=== PATIENT | male | born 1955 | race Caucasian/White ===

== ENCOUNTER 2017-09-02 13:58 | Emergency (ER) | payer MEDICARE, OTHER ==
[~2017-09-02] VITALS: Ht 180.3 cm; Wt 113.5 kg
[~2017-09-02 13:58] MED LIST: ASPI-10 PO; CARV3.12 PO; GABA600T2 PO; GLYB5TAB7 PO; INSU100V11 SQ; INSU200I4 SQ; LAMO200T2 PO; LORA1TAB PO; SERT100T PO; SIMV40TA4 PO; TRAZ150T78 PO
[2017-09-02 13:59] VITALS: BP 143/93
[2017-09-02] MEDS ORDERED: HYDR28CR14 TOP (14:17)
== END 2017-09-02 14:28 | disposition home or self-care (01) ==
LOC: ER 13:59
DX: L23.7 Allergic contact dermatitis due to plants, except food (principal); I10 Essential (primary) hypertension; E11.42 Type 2 diabetes mellitus with diabetic polyneuropathy; Z86.73 Personal history of transient ischemic attack (TIA), and cerebral infarction without residual deficits; Z79.82 Long term (current) use of aspirin; Z79.4 Long term (current) use of insulin; Z88.1 Allergy status to other antibiotic agents; Z91.018 Allergy to other foods
CPT/HCPCS: 99282

== ENCOUNTER 2017-11-10 10:07 | Day surgery (SDC) | payer MEDICARE ==
[~2017-11-10 10:07] MED LIST changes: +HYDR28CR14 TOP
[2017-11-10] MEDS ORDERED: LIDOcaine 2% 5ml jelly ONE (10:52)
[2017-11-10] MEDS ORDERED: ATOR80TA PO (11:28)
[2017-11-10] MEDS ORDERED: CLON-528 PO (11:29)
[2017-11-10] MEDS ORDERED: NPH,100V2 SQ (11:30)
[2017-11-10] MEDS ORDERED: BACL20TA PO (11:30)
[2017-11-10] MEDS ORDERED: NOVRI SQ (11:31)
[2017-11-10] MEDS ORDERED: FLUO40CA10 PO (11:33)
== END 2017-11-10 11:48 | disposition home or self-care (01) ==
LOC: WOUND CARE 10:07
PROVIDERS: ATTEND Surgery
DX: E11.621 Type 2 diabetes mellitus with foot ulcer (principal); L97.511 Non-pressure chronic ulcer of other part of right foot limited to breakdown of skin; L97.521 Non-pressure chronic ulcer of other part of left foot limited to breakdown of skin; L89.892 Pressure ulcer of other site, stage 2; L89.891 Pressure ulcer of other site, stage 1; E11.42 Type 2 diabetes mellitus with diabetic polyneuropathy; E11.65 Type 2 diabetes mellitus with hyperglycemia; I10 Essential (primary) hypertension; F31.9 Bipolar disorder, unspecified; Z89.421 Acquired absence of other right toe(s); Z86.14 Personal history of Methicillin resistant Staphylococcus aureus infection; Z86.73 Personal history of transient ischemic attack (TIA), and cerebral infarction without residual deficits
CPT/HCPCS: 36416; 82948; 97597; A6021; A6206

== ENCOUNTER 2017-11-17 10:20 | Outpatient (CLI) | payer MEDICARE ==
[~2017-11-17 10:20] MED LIST changes: +ATOR80TA PO; +BACL20TA PO; +CLON-528 PO; +FLUO40CA10 PO; -LAMO200T2 PO; -LORA1TAB PO; +NOVRI SQ; +NPH,100V2 SQ; -SERT100T PO; -SIMV40TA4 PO
[2017-11-17] MEDS ORDERED: CLON0.5T23 PO (15:44)
[2017-11-17] MEDS ORDERED: LISI1TAB9 PO (15:44)
[2017-11-17] MEDS ORDERED: ROPI1TAB2 PO (15:44)
[2017-11-17] MEDS ORDERED: NPH,100V2 SQ (15:44)
[2017-11-17] MEDS ORDERED: METF-436 PO (15:44)
[2017-11-17] MEDS ORDERED: MULT-1180 PO (15:44)
[2017-11-17] MEDS ORDERED: MECL-127 PO (15:44)
[2017-11-17] MEDS ORDERED: ATOR80TA PO (15:44)
[2017-11-17] MEDS ORDERED: BACL20TA PO (15:44)
[2017-11-17] MEDS ORDERED: NOVRI SQ (15:44)
[2017-11-17] MEDS ORDERED: TIZA4CAP6 PO (15:44)
== END 2017-11-17 11:04 | disposition home or self-care (01) ==
LOC: WOUND CARE 10:20 → EDSTATUS 10:30 → WOUND CARE 11:04
PROVIDERS: ATTEND Surgery
DX: E11.621 Type 2 diabetes mellitus with foot ulcer (principal); L97.511 Non-pressure chronic ulcer of other part of right foot limited to breakdown of skin; L97.521 Non-pressure chronic ulcer of other part of left foot limited to breakdown of skin; L89.892 Pressure ulcer of other site, stage 2; L89.891 Pressure ulcer of other site, stage 1; E11.42 Type 2 diabetes mellitus with diabetic polyneuropathy; E11.65 Type 2 diabetes mellitus with hyperglycemia; I10 Essential (primary) hypertension; F31.9 Bipolar disorder, unspecified; Z89.421 Acquired absence of other right toe(s); Z86.14 Personal history of Methicillin resistant Staphylococcus aureus infection; Z86.73 Personal history of transient ischemic attack (TIA), and cerebral infarction without residual deficits
CPT/HCPCS: 36416; 82948; 99211

== ENCOUNTER 2017-11-17 11:03 | Inpatient (IN) | payer MEDICARE, OTHER ==
[~2017-11-17] VITALS: Ht 610.5 cm; Wt 109.0 kg
[2017-11-17] MEDS ORDERED: normal saline 1000ML IV soln IVB ONE (12:55)
[2017-11-17 13:11] LABS: BASOPHILS # (AUTO) 0.1 X10'3 (0-0.2); BASOPHILS % (AUTO) 0.4 % (0-1); EOSINOPHILS # (AUTO) 0.3 X10'3 (0-0.9); EOSINOPHILS % (AUTO) 2.3 % (0-6); HEMATOCRIT 41.8 % (42.0-52.0); HEMOGLOBIN 14.1 g/dl (14.0-17.9); LYMPHOCYTES % (AUTO) 17.2 % (21-51); MEAN CORPUSCULAR HEMOGLOBIN 30.1 PG (27.0-31.0); MEAN CORPUSCULAR HGB CONC 33.8 % (33.0-36.5); MEAN CORPUSCULAR VOLUME 88.9 FL (78-98); MEAN PLATELET VOLUME 8.1 FL (7.4-10.4); MONOCYTES # (AUTO) 0.9 X10'3 (0-0.9); MONOCYTES % (AUTO) 7.7 % (2-12); NEUTROPHILS # (AUTO) 8.4 X10'3 (1.8-7.7); NEUTROPHILS % (AUTO) 72.4 % (42-75); PLATELET COUNT 277 X10'3 (140-440); RED CELL DISTRIBUTION WIDTH 13.8 % (11.5-14.5); WHITE BLOOD COUNT 11.6 X10'3 (4.5-11.0)
[2017-11-17 13:27] LABS: ALANINE AMINOTRANSFERASE 31 U/L (12-78); ALBUMIN 4.3 G/DL (3.4-5.0); ALBUMIN/GLOBULIN RATIO 1.1 (1.1-1.5); ALKALINE PHOSPHATASE 111 IU/L (46-116); ANION GAP 12 (8-16); ASPARTATE AMINO TRANSFERASE 18 U/L (10-37); BILIRUBIN,TOTAL 0.5 MG/DL (0.1-1.0); BLOOD UREA NITROGEN 59 MG/DL (7-18); BUN/CREATININE RATIO 12.4 (5.4-32.0); CALCIUM 9.4 MG/DL (8.5-10.1); CHLORIDE 95 MMOL/L (99-107); CREATININE 4.75 MG/DL (0.60-1.10); GLUCOSE 296 MG/DL (70-104); POTASSIUM 5.3 MMOL/L (3.5-5.1); SODIUM 131 MMOL/L (135-145); TOTAL CARBON DIOXIDE 23.8 MMOL/L (24-32); TOTAL PROTEIN 8.2 G/DL (6.4-8.2); eGFR 13 ML/MIN
[2017-11-17 14:10] LABS: PROTHROMBIN TIME 10.4 SECONDS (9.0-12.0)
[2017-11-17] MEDS ORDERED: magnesium Cl slow-release 64mg tablet PO PRN (14:30)
[2017-11-17] MEDS ORDERED: potassium Cl 40MEQ/NS 500ml 500 ML IV PRN ×2 (14:30)
[2017-11-17] MEDS ORDERED: magnesium 4gm in 100ml NS 100 ML IV PRN (14:30)
[2017-11-17] MEDS ORDERED: magnesium hydroxide 30ml (MOM) UD suspension PO PRN (14:30)
[2017-11-17] MEDS ORDERED: potassium Cl 20 mEq SR tablet PO PRN ×2 (14:30)
[2017-11-17] MEDS ORDERED: ondansetron/PF 4mg/2ml inj IV PRN (14:30)
[2017-11-17] MEDS ORDERED: magnesium 1gm/100ml D5W IVPB 100 ML IV PRN (14:30)
[2017-11-17] MEDS ORDERED: acetaminophen 325mg tablet PO PRN ×2 (14:30)
[2017-11-17] MEDS ORDERED: mag hydrox/Alum hydrox/simeth 30ml oral suspension PO PRN (14:30)
[2017-11-17] MEDS: normal saline 1000ml 1,000 ML IV SCH ×2 (14:49→23:09)
[2017-11-17] MEDS ORDERED: MECL-127 PO (15:44)
[2017-11-17] MEDS ORDERED: BACL20TA PO (15:44)
[2017-11-17] MEDS ORDERED: ATOR80TA PO (15:44)
[2017-11-17] MEDS ORDERED: NOVRI SQ (15:44)
[2017-11-17] MEDS ORDERED: METF-436 PO (15:44)
[2017-11-17] MEDS ORDERED: CLON0.5T23 PO (15:44)
[2017-11-17] MEDS ORDERED: LISI1TAB9 PO (15:44)
[2017-11-17] MEDS ORDERED: ROPI1TAB2 PO (15:44)
[2017-11-17] MEDS ORDERED: MULT-1180 PO (15:44)
[2017-11-17] MEDS ORDERED: TIZA4CAP6 PO (15:44)
[2017-11-17] MEDS ORDERED: NPH,100V2 SQ (15:44)
[2017-11-17] MEDS ORDERED: HYDROcodone/acetaminophen 10/325mg tab PO PRN ×3 (16:45→16:50)
[2017-11-17] MEDS: HYDROcodone/acetaminophen 10/325mg tab PO PRN (17:12)
[2017-11-17 17:15] VITALS: BP 115/62
[2017-11-17] MEDS ORDERED: glucagon, human recombinant 1mg kit SUBCUT PRN (17:45)
[2017-11-17] MEDS ORDERED: MESSAGE TO PHARMACY PO ONE (17:45)
[2017-11-17] MEDS ORDERED: TIZANIDINE HCL PO PRN (17:45)
[2017-11-17] MEDS ORDERED: BACLOFEN PO PRN (17:45)
[2017-11-17] MEDS ORDERED: dextrose ORAL solution 15 GM/59 ML bottle PO PRN ×2 (17:45)
[2017-11-17] MEDS ORDERED: non-formulary drug (Clonazepam 1 TAB) PO PRN (17:45)
[2017-11-17] MEDS ORDERED: dextrose 50%-water 50ml dispensing syringe IV PRN ×2 (17:45)
[2017-11-17] MEDS ORDERED: MECLIZINE HCL 25 MG PO PRN (17:45)
[2017-11-17] MEDS ORDERED: insulin Lispro (HumaLOG) vial - multi-dose SQ SCH (17:45)
[2017-11-17] MEDS ORDERED: clonazePAM 0.5mg tablet PO PRN (17:50)
[2017-11-17] MEDS ORDERED: baclofen 10mg tablet PO PRN (17:50)
[2017-11-17] MEDS ORDERED: meclizine 12.5mg tablet PO PRN (17:55)
[2017-11-17] MEDS ORDERED: tizanidine 4mg tablet PO PRN (17:55)
[2017-11-17 18:00] VITALS: BP 115/62
[2017-11-17 18:18] LABS: HEMOGLOBIN A1C 9.5 % (4.5-6.2)
[2017-11-17] MEDS: diphenhydrAMINE 25mg capsule PO PRN (19:57)
[2017-11-17] MEDS: carVEDilol 3.125mg tablet PO SCH (19:57)
[2017-11-17] MEDS: heparin, porcine 5000 units/ml vial SQ SCH (19:58)
[2017-11-17 20:00] VITALS: BP_SYST 103; BP_SYST 107; BP_SYST 110; BP_DIAS 48; BP_DIAS 62; BP_DIAS 63
[2017-11-17] MEDS ORDERED: NPH, human insulin isophane inj. SQ SCH (20:00)
[2017-11-17] MEDS ORDERED: non-formulary drug (Atorvastatin Calcium* (Lipitor*) 1 TABLET) PO SCH (21:00)
[2017-11-17] MEDS ORDERED: temazepam 15mg capsule PO PRN (21:00)
[2017-11-17] MEDS: traZODone 150mg tablet PO PRN (21:09)
[2017-11-17] MEDS: atorvastatin 20mg tablet PO SCH (21:10)
[2017-11-17] MEDS: ROPINIRole 1mg tablet PO SCH (21:10)
[2017-11-17] MEDS: insulin Lispro (HumaLOG) vial - multi-dose SQ SCH (21:22)
[2017-11-17] MEDS: insulin glargine (Lantus) pen - multi-dose SQ SCH (21:24)
[2017-11-17 22:00] VITALS: BP 107/63
[2017-11-17 23:53] LABS: TOTAL PROTEIN,URINE RANDOM 37.8 MG/DL
[2017-11-18 00:32] LABS: UA EOSINOPHILS NO EOS /HPF
[2017-11-18 01:22] LABS: HEMATOCRIT 37.1 % (42.0-52.0); HEMOGLOBIN 12.3 g/dl (14.0-17.9); MEAN CORPUSCULAR HEMOGLOBIN 29.7 PG (27.0-31.0); MEAN CORPUSCULAR HGB CONC 33.2 % (33.0-36.5); MEAN CORPUSCULAR VOLUME 89.5 FL (78-98); MEAN PLATELET VOLUME 8.3 FL (7.4-10.4); PLATELET COUNT 231 X10'3 (140-440); RED BLOOD COUNT 4.15 X10'6 (4.70-6.10); RED CELL DISTRIBUTION WIDTH 13.2 % (11.5-14.5); WHITE BLOOD COUNT 10.4 X10'3 (4.5-11.0)
[2017-11-18 01:33] LABS: ALBUMIN 3.5 G/DL (3.4-5.0); ANION GAP 12 (8-16); BLOOD UREA NITROGEN 58 MG/DL (7-18); BUN/CREATININE RATIO 17.5 (5.4-32.0); CALCIUM 8.6 MG/DL (8.5-10.1); CHLORIDE 98 MMOL/L (99-107); CREATININE 3.32 MG/DL (0.60-1.10); GLUCOSE 168 MG/DL (70-104); MAGNESIUM 2.4 MG/DL (1.5-2.4); POTASSIUM 4.4 MMOL/L (3.5-5.1); SODIUM 135 MMOL/L (135-145); TOTAL CARBON DIOXIDE 25.5 MMOL/L (24-32); eGFR 19 ML/MIN
[2017-11-18] MEDS: diphenhydrAMINE 25mg capsule PO PRN ×3 (05:23→21:50)
[2017-11-18] MEDS: HYDROcodone/acetaminophen 10/325mg tab PO PRN ×2 (05:24→10:42)
[2017-11-18 06:00] VITALS: BP 120/71
[2017-11-18] MEDS ORDERED: non-formulary drug (Fluoxetine HCl (Prozac) 1 CAP) PO SCH (08:00)
[2017-11-18] MEDS: K and/or MAG REPLACEMENT MC SCH (08:00)
[2017-11-18] MEDS: heparin, porcine 5000 units/ml vial SQ SCH ×2 (08:16→20:36)
[2017-11-18] MEDS: carVEDilol 3.125mg tablet PO SCH ×2 (08:17→20:35)
[2017-11-18] MEDS: FLUoxetine 20mg capsule PO SCH (08:17)
[2017-11-18] MEDS: aspirin 325mg tablet PO SCH (08:17)
[2017-11-18] MEDS: ROPINIRole 1mg tablet PO SCH ×4 (08:17→20:36)
[2017-11-18] MEDS: insulin Lispro (HumaLOG) vial - multi-dose SQ SCH ×3 (08:45→19:05)
[2017-11-18] MEDS: normal saline 1000ml 1,000 ML IV SCH ×3 (08:50→18:56)
[2017-11-18 10:00] VITALS: BP 119/67
[2017-11-18 18:00] VITALS: BP 132/72
[2017-11-18 19:37] LABS: CLARITY,URINE CLEAR (Clear); COLOR,URINE YELLOW (Yellow); GLUCOSE, URINE 100 mg/dl (Neg); KETONES,URINE NEGATIVE (Neg); LEUKOCYTE ESTERASE ,URINE NEGATIVE (Neg); NITRITES, URINE NEGATIVE (Neg); OCCULT BLOOD,URINE NEGATIVE (Neg); PH,URINE 5.5 (4.8-8.0); PROTEIN,URINE NEGATIVE (Neg); UROBILINOGEN,URINE 0.2 E.U/dL (0.2-1.0)
[2017-11-18 19:38] LABS: UA COLLECTION TYPE CLN CATCH MIDSTREAM
[2017-11-18] MEDS: atorvastatin 20mg tablet PO SCH (20:35)
[2017-11-18] MEDS: insulin glargine (Lantus) pen - multi-dose SQ SCH (21:41)
[2017-11-18 22:00] VITALS: BP 124/67
[2017-11-19 05:35] LABS: HEMATOCRIT 35.4 % (42.0-52.0); MEAN CORPUSCULAR HEMOGLOBIN 29.8 PG (27.0-31.0); MEAN CORPUSCULAR VOLUME 87.5 FL (78-98); MEAN PLATELET VOLUME 8.7 FL (7.4-10.4); PLATELET COUNT 216 X10'3 (140-440); RED BLOOD COUNT 4.04 X10'6 (4.70-6.10); RED CELL DISTRIBUTION WIDTH 13.4 % (11.5-14.5); WHITE BLOOD COUNT 8.4 X10'3 (4.5-11.0)
[2017-11-19 05:56] LABS: ALBUMIN 3.2 G/DL (3.4-5.0); ANION GAP 6 (8-16); BLOOD UREA NITROGEN 45 MG/DL (7-18); BUN/CREATININE RATIO 25.9 (5.4-32.0); CALCIUM 8.3 MG/DL (8.5-10.1); CHLORIDE 103 MMOL/L (99-107); CREATININE 1.74 MG/DL (0.60-1.10); GLUCOSE 244 MG/DL (70-104); MAGNESIUM 1.9 MG/DL (1.5-2.4); POTASSIUM 5.5 MMOL/L (3.5-5.1); SODIUM 136 MMOL/L (135-145); TOTAL CARBON DIOXIDE 26.7 MMOL/L (24-32); eGFR 40 ML/MIN
[2017-11-19 06:00] VITALS: BP 141/67
[2017-11-19] MEDS: normal saline 1000ml 1,000 ML IV SCH ×3 (07:18→23:06)
[2017-11-19] MEDS: carVEDilol 3.125mg tablet PO SCH ×2 (07:18→19:52)
[2017-11-19] MEDS: ROPINIRole 1mg tablet PO SCH ×4 (07:19→19:53)
[2017-11-19] MEDS: FLUoxetine 20mg capsule PO SCH (07:19)
[2017-11-19] MEDS: multivitamins, therapeutics tablet PO SCH (07:19)
[2017-11-19] MEDS: heparin, porcine 5000 units/ml vial SQ SCH ×2 (07:19→19:54)
[2017-11-19] MEDS: aspirin 325mg tablet PO SCH (07:30)
[2017-11-19] MEDS: K and/or MAG REPLACEMENT MC SCH (07:33)
[2017-11-19] MEDS: insulin Lispro (HumaLOG) vial - multi-dose SQ SCH ×3 (09:14→19:09)
[2017-11-19 11:00] VITALS: BP 152/72
[2017-11-19] MEDS ORDERED: sodium polystyrene sulfonate 15gm/60ml oral suspension PO ONE ×3 (11:40→19:15)
[2017-11-19] MEDS: diphenhydrAMINE 25mg capsule PO PRN (11:53)
[2017-11-19 18:00] VITALS: BP 162/66
[2017-11-19] MEDS ORDERED: furosemide 20MG tablet PO SCH (19:10)
[2017-11-19] MEDS: furosemide 20MG tablet PO SCH (19:53)
[2017-11-19] MEDS: atorvastatin 20mg tablet PO SCH (19:53)
[2017-11-19] MEDS: sulfamethoxazole/trimethoprim DS (800/160mg) tablet PO SCH (19:53)
[2017-11-19 20:00] VITALS: BP_SYST 163; BP_SYST 178; BP_SYST 179; BP_DIAS 64; BP_DIAS 81; BP_DIAS 84
[2017-11-19] MEDS ORDERED: insulin glargine (Lantus) pen - multi-dose SQ SCH (21:00)
[2017-11-19] MEDS: traZODone 150mg tablet PO PRN (21:05)
[2017-11-19 22:00] VITALS: BP 179/81
[2017-11-20] MEDS: normal saline 1000ml 1,000 ML IV SCH (05:15)
[2017-11-20 05:49] LABS: HEMATOCRIT 37.2 % (42.0-52.0); HEMOGLOBIN 12.8 g/dl (14.0-17.9); MEAN CORPUSCULAR HEMOGLOBIN 30.1 PG (27.0-31.0); MEAN CORPUSCULAR HGB CONC 34.3 % (33.0-36.5); MEAN CORPUSCULAR VOLUME 87.8 FL (78-98); MEAN PLATELET VOLUME 8.3 FL (7.4-10.4); PLATELET COUNT 234 X10'3 (140-440); RED BLOOD COUNT 4.23 X10'6 (4.70-6.10); RED CELL DISTRIBUTION WIDTH 13.7 % (11.5-14.5); WHITE BLOOD COUNT 8.9 X10'3 (4.5-11.0)
[2017-11-20 06:00] VITALS: BP 152/71
[2017-11-20 06:10] LABS: ALBUMIN 3.4 G/DL (3.4-5.0); ANION GAP 9 (8-16); BLOOD UREA NITROGEN 28 MG/DL (7-18); BUN/CREATININE RATIO 20.7 (5.4-32.0); CALCIUM 8.5 MG/DL (8.5-10.1); CHLORIDE 105 MMOL/L (99-107); CREATININE 1.35 MG/DL (0.60-1.10); GLUCOSE 181 MG/DL (70-104); MAGNESIUM 1.5 MG/DL (1.5-2.4); POTASSIUM 4.4 MMOL/L (3.5-5.1); SODIUM 140 MMOL/L (135-145); TOTAL CARBON DIOXIDE 26.2 MMOL/L (24-32); eGFR 54 ML/MIN
[2017-11-20] MEDS: multivitamins, therapeutics tablet PO SCH (07:38)
[2017-11-20] MEDS: sulfamethoxazole/trimethoprim DS (800/160mg) tablet PO SCH (07:38)
[2017-11-20] MEDS: ROPINIRole 1mg tablet PO SCH ×2 (07:38→12:24)
[2017-11-20] MEDS: aspirin 325mg tablet PO SCH (07:38)
[2017-11-20] MEDS: carVEDilol 3.125mg tablet PO SCH (07:38)
[2017-11-20] MEDS: FLUoxetine 20mg capsule PO SCH (07:38)
[2017-11-20] MEDS: furosemide 20MG tablet PO SCH (07:39)
[2017-11-20] MEDS: heparin, porcine 5000 units/ml vial SQ SCH (07:39)
[2017-11-20] MEDS: K and/or MAG REPLACEMENT MC SCH (08:00)
[2017-11-20] MEDS: insulin Lispro (HumaLOG) vial - multi-dose SQ SCH (09:02)
[2017-11-20] MEDS ORDERED: NPH,100V2 SQ (11:25)
[2017-11-20] MEDS ORDERED: BACDS PO (11:25)
== END 2017-11-20 13:05 | disposition home health service (06) | DRG 637 ==
LOC: ER 11:04 → ED HOLD 14:27 → EDBEDREQ 15:17 → ORTHO 4S 16:40
PROVIDERS: ADMIT Family Medicine; ATTEND Internal Medicine
DX: E11.65 Type 2 diabetes mellitus with hyperglycemia (principal); N17.0 Acute kidney failure with tubular necrosis; E87.1 Hypo-osmolality and hyponatremia; G89.4 Chronic pain syndrome; E86.0 Dehydration; E87.5 Hyperkalemia; E11.22 Type 2 diabetes mellitus with diabetic chronic kidney disease; E66.9 Obesity, unspecified; E11.42 Type 2 diabetes mellitus with diabetic polyneuropathy; M54.9 Dorsalgia, unspecified; I12.9 Hypertensive chronic kidney disease with stage 1 through stage 4 chronic kidney disease, or unspecified chronic kidney disease; S09.90XA Unspecified injury of head, initial encounter; F41.9 Anxiety disorder, unspecified; M25.462 Effusion, left knee; N18.3 Chronic kidney disease, stage 3 (moderate); E78.00 Pure hypercholesterolemia, unspecified; E78.5 Hyperlipidemia, unspecified; F31.9 Bipolar disorder, unspecified; W18.30XA Fall on same level, unspecified, initial encounter; Z89.421 Acquired absence of other right toe(s); Z79.4 Long term (current) use of insulin; Z79.82 Long term (current) use of aspirin; Z79.899 Other long term (current) drug therapy; Z79.84 Long term (current) use of oral hypoglycemic drugs; Z88.1 Allergy status to other antibiotic agents; Z91.018 Allergy to other foods; Z86.14 Personal history of Methicillin resistant Staphylococcus aureus infection; Z86.73 Personal history of transient ischemic attack (TIA), and cerebral infarction without residual deficits; Z87.442 Personal history of urinary calculi; Y93.89 Activity, other specified; Y92.89 Other specified places as the place of occurrence of the external cause; Y99.8 Other external cause status
CPT/HCPCS: 36415; 70450; 73560; 76775; 80048; 80053; 81003; 82570; 82948; 83036; 83735; 83935; 84132; 84133; 84156; 84300; 84484; 85025; 85027; 85610; 87070; 87207; 93005; 96360; 97116; 97161; 97530; 99285; A6222; J1644; J1815; J7030; Q0163

== ENCOUNTER 2019-01-13 09:55 | Day surgery (SDC) | payer MEDICARE ==
[~2019-01-13 09:55] MED LIST changes: +AMLO10TA PO; +AMOX1TAB11 PO; +ATOR20TA66 PO; -ATOR80TA PO; +BAC10T PO; -BACL20TA PO; -CARV3.12 PO; -CLON-528 PO; +CLON0.5T12 PO; +COR3.125T PO; +FER325T PO; +GABA300C PO; -GABA600T2 PO; -GLYB5TAB7 PO; -HYDR28CR14 TOP; -INSU100V11 SQ; -INSU200I4 SQ; +LACT1CAP26 PO; +LEVE250T PO; +MECL12.584 PO; +METF-436 PO; +MULT-1180 PO; +ROPI1TAB4 PO; +TRAZ-251 PO; -TRAZ150T78 PO
[2019-01-13] MEDS ORDERED: LIDOcaine 2% 5ml jelly ONE (10:53)
== END 2019-01-13 11:55 | disposition home or self-care (01) ==
LOC: WOUND CARE 09:55
PROVIDERS: ATTEND Surgery
DX: E11.621 Type 2 diabetes mellitus with foot ulcer (principal); L97.522 Non-pressure chronic ulcer of other part of left foot with fat layer exposed; E11.42 Type 2 diabetes mellitus with diabetic polyneuropathy; E11.65 Type 2 diabetes mellitus with hyperglycemia; E11.21 Type 2 diabetes mellitus with diabetic nephropathy; E11.22 Type 2 diabetes mellitus with diabetic chronic kidney disease; I12.9 Hypertensive chronic kidney disease with stage 1 through stage 4 chronic kidney disease, or unspecified chronic kidney disease; N18.9 Chronic kidney disease, unspecified; E78.5 Hyperlipidemia, unspecified; G89.29 Other chronic pain; G40.89 Other seizures; E78.00 Pure hypercholesterolemia, unspecified; M19.90 Unspecified osteoarthritis, unspecified site; F31.9 Bipolar disorder, unspecified; Z79.82 Long term (current) use of aspirin; Z79.84 Long term (current) use of oral hypoglycemic drugs; Z79.899 Other long term (current) drug therapy; Z89.421 Acquired absence of other right toe(s); Z86.14 Personal history of Methicillin resistant Staphylococcus aureus infection; Z86.73 Personal history of transient ischemic attack (TIA), and cerebral infarction without residual deficits
CPT/HCPCS: 11042; 36416; 82948; 87070; 87077; 87102; 87176; 87186; L3260; 87075; A4663; A6021; A6154

== ENCOUNTER 2019-01-19 12:17 | Emergency (ER) | payer MEDICARE ==
[~2019-01-19] VITALS: Ht 180.3 cm; Wt 109.1 kg
[2019-01-19 12:19] VITALS: BP 148/71
== END 2019-01-19 13:59 | disposition home or self-care (01) ==
LOC: ER 12:18
DX: E11.621 Type 2 diabetes mellitus with foot ulcer (principal); L97.529 Non-pressure chronic ulcer of other part of left foot with unspecified severity; E78.00 Pure hypercholesterolemia, unspecified; I10 Essential (primary) hypertension; G89.29 Other chronic pain; E11.42 Type 2 diabetes mellitus with diabetic polyneuropathy; Z86.73 Personal history of transient ischemic attack (TIA), and cerebral infarction without residual deficits; Z87.442 Personal history of urinary calculi; Z98.890 Other specified postprocedural states; Z88.3 Allergy status to other anti-infective agents; Z88.1 Allergy status to other antibiotic agents; Z91.018 Allergy to other foods; Z79.82 Long term (current) use of aspirin; Z79.899 Other long term (current) drug therapy; Z79.4 Long term (current) use of insulin
CPT/HCPCS: 99284

== ENCOUNTER 2019-01-20 10:00 | Day surgery (SDC) | payer MEDICARE ==
[2019-01-20] MEDS ORDERED: LIDOcaine 2% 5ml jelly ONE (10:37)
== END 2019-01-20 11:15 | disposition home or self-care (01) ==
LOC: WOUND CARE 10:00
PROVIDERS: ATTEND Surgery
DX: E11.621 Type 2 diabetes mellitus with foot ulcer (principal); L97.522 Non-pressure chronic ulcer of other part of left foot with fat layer exposed; E11.42 Type 2 diabetes mellitus with diabetic polyneuropathy; E11.65 Type 2 diabetes mellitus with hyperglycemia; E11.21 Type 2 diabetes mellitus with diabetic nephropathy; E11.22 Type 2 diabetes mellitus with diabetic chronic kidney disease; I12.9 Hypertensive chronic kidney disease with stage 1 through stage 4 chronic kidney disease, or unspecified chronic kidney disease; N18.9 Chronic kidney disease, unspecified; E78.5 Hyperlipidemia, unspecified; G89.29 Other chronic pain; G40.89 Other seizures; E78.00 Pure hypercholesterolemia, unspecified; M19.90 Unspecified osteoarthritis, unspecified site; F31.9 Bipolar disorder, unspecified; Z79.82 Long term (current) use of aspirin; Z79.84 Long term (current) use of oral hypoglycemic drugs; Z79.899 Other long term (current) drug therapy; Z89.421 Acquired absence of other right toe(s); Z86.14 Personal history of Methicillin resistant Staphylococcus aureus infection; Z86.73 Personal history of transient ischemic attack (TIA), and cerebral infarction without residual deficits
CPT/HCPCS: 36416; 82948; A4663; A6021; A6154

== ENCOUNTER 2019-01-27 09:55 | Day surgery (SDC) | payer MEDICARE ==
[2019-01-27] MEDS ORDERED: LIDOcaine 2% 5ml jelly ONE (10:21)
== END 2019-01-27 11:45 | disposition home or self-care (01) ==
LOC: WOUND CARE 09:55
PROVIDERS: ATTEND Surgery
DX: E11.621 Type 2 diabetes mellitus with foot ulcer (principal); L97.522 Non-pressure chronic ulcer of other part of left foot with fat layer exposed; E11.42 Type 2 diabetes mellitus with diabetic polyneuropathy; E11.65 Type 2 diabetes mellitus with hyperglycemia; E11.21 Type 2 diabetes mellitus with diabetic nephropathy; E11.22 Type 2 diabetes mellitus with diabetic chronic kidney disease; I12.9 Hypertensive chronic kidney disease with stage 1 through stage 4 chronic kidney disease, or unspecified chronic kidney disease; N18.9 Chronic kidney disease, unspecified; E78.5 Hyperlipidemia, unspecified; G89.29 Other chronic pain; G40.89 Other seizures; E78.00 Pure hypercholesterolemia, unspecified; M19.90 Unspecified osteoarthritis, unspecified site; F31.9 Bipolar disorder, unspecified; Z79.82 Long term (current) use of aspirin; Z79.84 Long term (current) use of oral hypoglycemic drugs; Z79.899 Other long term (current) drug therapy; Z89.421 Acquired absence of other right toe(s); Z86.14 Personal history of Methicillin resistant Staphylococcus aureus infection; Z86.73 Personal history of transient ischemic attack (TIA), and cerebral infarction without residual deficits
CPT/HCPCS: 36416; 82948; A4663; A6021; A6154; A6234

== ENCOUNTER 2019-02-10 09:55 | Day surgery (SDC) | payer MEDICARE ==
[~2019-02-10 09:55] MED LIST changes: -CLON0.5T12 PO; +CLON0.5T4 PO
[2019-02-10] MEDS ORDERED: LIDOcaine 2% 5ml jelly ONE (10:08)
== END 2019-02-10 11:04 | disposition home or self-care (01) ==
LOC: WOUND CARE 09:55
PROVIDERS: ATTEND Surgery
DX: E11.621 Type 2 diabetes mellitus with foot ulcer (principal); L97.522 Non-pressure chronic ulcer of other part of left foot with fat layer exposed; E11.42 Type 2 diabetes mellitus with diabetic polyneuropathy; E11.65 Type 2 diabetes mellitus with hyperglycemia; E11.21 Type 2 diabetes mellitus with diabetic nephropathy; E11.22 Type 2 diabetes mellitus with diabetic chronic kidney disease; I12.9 Hypertensive chronic kidney disease with stage 1 through stage 4 chronic kidney disease, or unspecified chronic kidney disease; N18.9 Chronic kidney disease, unspecified; E78.5 Hyperlipidemia, unspecified; G89.29 Other chronic pain; G40.89 Other seizures; E78.00 Pure hypercholesterolemia, unspecified; M19.90 Unspecified osteoarthritis, unspecified site; F31.9 Bipolar disorder, unspecified; Z79.82 Long term (current) use of aspirin; Z79.84 Long term (current) use of oral hypoglycemic drugs; Z79.899 Other long term (current) drug therapy; Z89.421 Acquired absence of other right toe(s); Z86.14 Personal history of Methicillin resistant Staphylococcus aureus infection; Z86.73 Personal history of transient ischemic attack (TIA), and cerebral infarction without residual deficits
CPT/HCPCS: 11042; 82948; A6209; A4663; A6021; A6154

== ENCOUNTER 2019-02-17 10:01 | Day surgery (SDC) | payer MEDICARE ==
[~2019-02-17 10:01] MED LIST changes: +CLON0.5T12 PO; -CLON0.5T4 PO
[2019-02-17] MEDS ORDERED: LIDOcaine 2% 5ml jelly ONE (10:57)
== END 2019-02-17 11:20 | disposition home or self-care (01) ==
LOC: WOUND CARE 10:01
PROVIDERS: ATTEND Surgery
DX: E11.621 Type 2 diabetes mellitus with foot ulcer (principal); L97.522 Non-pressure chronic ulcer of other part of left foot with fat layer exposed; E11.42 Type 2 diabetes mellitus with diabetic polyneuropathy; E11.65 Type 2 diabetes mellitus with hyperglycemia; E11.21 Type 2 diabetes mellitus with diabetic nephropathy; E11.22 Type 2 diabetes mellitus with diabetic chronic kidney disease; I12.9 Hypertensive chronic kidney disease with stage 1 through stage 4 chronic kidney disease, or unspecified chronic kidney disease; N18.9 Chronic kidney disease, unspecified; E78.5 Hyperlipidemia, unspecified; G89.29 Other chronic pain; G40.89 Other seizures; E78.00 Pure hypercholesterolemia, unspecified; M19.90 Unspecified osteoarthritis, unspecified site; F31.9 Bipolar disorder, unspecified; Z79.82 Long term (current) use of aspirin; Z79.84 Long term (current) use of oral hypoglycemic drugs; Z79.899 Other long term (current) drug therapy; Z89.421 Acquired absence of other right toe(s); Z86.14 Personal history of Methicillin resistant Staphylococcus aureus infection; Z86.73 Personal history of transient ischemic attack (TIA), and cerebral infarction without residual deficits
CPT/HCPCS: 36416; 82948; 97597; A4663; A6021; A6154

== ENCOUNTER 2019-02-24 09:50 | Outpatient (CLI) | payer MEDICARE ==
[2019-02-24] MEDS ORDERED: LIDOcaine 2% 5ml jelly ONE (10:28)
[2019-02-24] MEDS ORDERED: mupirocin 2% ointment 22GM ONE (10:50)
== END 2019-02-24 10:57 | disposition home or self-care (01) ==
LOC: WOUND CARE 09:50 → EDSTATUS 10:00 → WOUND CARE 10:57
PROVIDERS: ATTEND Surgery
DX: E11.621 Type 2 diabetes mellitus with foot ulcer (principal); L97.522 Non-pressure chronic ulcer of other part of left foot with fat layer exposed; E11.42 Type 2 diabetes mellitus with diabetic polyneuropathy; E11.65 Type 2 diabetes mellitus with hyperglycemia; E11.21 Type 2 diabetes mellitus with diabetic nephropathy; E11.22 Type 2 diabetes mellitus with diabetic chronic kidney disease; I12.9 Hypertensive chronic kidney disease with stage 1 through stage 4 chronic kidney disease, or unspecified chronic kidney disease; N18.9 Chronic kidney disease, unspecified; E78.5 Hyperlipidemia, unspecified; G89.29 Other chronic pain; G40.89 Other seizures; E78.00 Pure hypercholesterolemia, unspecified; M19.90 Unspecified osteoarthritis, unspecified site; F31.9 Bipolar disorder, unspecified; Z79.82 Long term (current) use of aspirin; Z79.84 Long term (current) use of oral hypoglycemic drugs; Z79.899 Other long term (current) drug therapy; Z89.421 Acquired absence of other right toe(s); Z86.14 Personal history of Methicillin resistant Staphylococcus aureus infection; Z86.73 Personal history of transient ischemic attack (TIA), and cerebral infarction without residual deficits
CPT/HCPCS: A4663; G0463

== ENCOUNTER 2019-03-10 11:25 | Day surgery (SDC) | payer MEDICARE ==
[~2019-03-10 11:25] MED LIST changes: -CLON0.5T12 PO; +CLON0.5T4 PO
== END 2019-03-10 12:24 | disposition home or self-care (01) ==
LOC: WOUND CARE 11:25
PROVIDERS: ATTEND Surgery
DX: E11.621 Type 2 diabetes mellitus with foot ulcer (principal); L97.522 Non-pressure chronic ulcer of other part of left foot with fat layer exposed; E11.42 Type 2 diabetes mellitus with diabetic polyneuropathy; E11.65 Type 2 diabetes mellitus with hyperglycemia; E11.21 Type 2 diabetes mellitus with diabetic nephropathy; E11.22 Type 2 diabetes mellitus with diabetic chronic kidney disease; I12.9 Hypertensive chronic kidney disease with stage 1 through stage 4 chronic kidney disease, or unspecified chronic kidney disease; N18.9 Chronic kidney disease, unspecified; E78.5 Hyperlipidemia, unspecified; G89.29 Other chronic pain; G40.89 Other seizures; E78.00 Pure hypercholesterolemia, unspecified; M19.90 Unspecified osteoarthritis, unspecified site; F31.9 Bipolar disorder, unspecified; Z79.82 Long term (current) use of aspirin; Z79.84 Long term (current) use of oral hypoglycemic drugs; Z79.899 Other long term (current) drug therapy; Z89.421 Acquired absence of other right toe(s); Z86.14 Personal history of Methicillin resistant Staphylococcus aureus infection; Z86.73 Personal history of transient ischemic attack (TIA), and cerebral infarction without residual deficits
CPT/HCPCS: 82948; 97597; Q4160

== ENCOUNTER 2019-03-25 15:48 | Emergency (ER) | payer MEDICARE ==
[~2019-03-25] VITALS: Ht 180.3 cm; Wt 103.6 kg
--- NOTE | 2019-03-25 16:09 | NUR ---
NOTIFIED DR SCHILLING OF PT S/S AND STROKE PROTOCOL PUT IN. DID NOT CALL A STROKE ALERT. MD MINAYA
[2019-03-25 16:34] LABS: BASOPHILS # (AUTO) 0.1 X10'3 (0-0.2); BASOPHILS % (AUTO) 0.9 % (0-1); EOSINOPHILS # (AUTO) 0.4 X10'3 (0-0.9); EOSINOPHILS % (AUTO) 5.7 % (0-6); HEMATOCRIT 37.9 % (42.0-52.0); HEMOGLOBIN 13.1 g/dl (14.0-17.9); LYMPHOCYTES # (AUTO) 2.3 X10'3 (1.1-4.8); LYMPHOCYTES % (AUTO) 31.8 % (21-51); MEAN CORPUSCULAR HEMOGLOBIN 31.5 PG (27.0-31.0); MEAN CORPUSCULAR HGB CONC 34.7 g/dL (33.0-36.5); MEAN CORPUSCULAR VOLUME 90.8 FL (78-98); MEAN PLATELET VOLUME 7.8 FL (7.4-10.4); MONOCYTES # (AUTO) 0.5 X10'3 (0-0.9); MONOCYTES % (AUTO) 7.1 % (2-12); NEUTROPHILS % (AUTO) 54.5 % (42-75); PLATELET COUNT 177 X10'3 (140-440); RED BLOOD COUNT 4.17 X10'6 (4.70-6.10); RED CELL DISTRIBUTION WIDTH 13.4 % (11.5-14.5); WHITE BLOOD COUNT 7.4 X10'3 (4.5-11.0)
[2019-03-25 16:49] LABS: PARTIAL THROMBOPLASTIN TIME 25 SECONDS (22-32)
[2019-03-25 16:51] LABS: ALANINE AMINOTRANSFERASE 18 U/L (12-78); ALBUMIN 3.5 G/DL (3.4-5.0); ALKALINE PHOSPHATASE 75 IU/L (46-116); ANION GAP 3 (8-16); ASPARTATE AMINO TRANSFERASE 12 U/L (10-37); BILIRUBIN,TOTAL 0.3 MG/DL (0.1-1.0); BLOOD UREA NITROGEN 29 MG/DL (7-18); BUN/CREATININE RATIO 16.8 (5.4-32.0); CALCIUM 8.4 MG/DL (8.5-10.1); CHLORIDE 102 MMOL/L (99-107); CREATININE 1.73 MG/DL (0.60-1.10); GLUCOSE 255 MG/DL (70-104); POTASSIUM 4.7 MMOL/L (3.5-5.1); SODIUM 138 MMOL/L (135-145); TOTAL CARBON DIOXIDE 32.8 MMOL/L (24-32); TOTAL PROTEIN 6.9 G/DL (6.4-8.2); eGFR 40 ML/MIN
[2019-03-25 16:54] LABS: TROPONIN I < 0.04 NG/ML (0.0-0.05)
--- NOTE | 2019-03-25 17:50 | NUR ---
tele neuro initiated
[2019-03-25] MEDS ORDERED: aspirin 325mg tablet PO ONE (17:55)
[2019-03-25 18:08] LABS: ETHANOL < 0.010 GM/DL (0.0-0.010)
[2019-03-25 18:35] LABS: URINE AMPHETAMINE SCREEN NEGATIVE (Neg); URINE BARBITUATE SCREEN NEGATIVE (Neg); URINE BENZODIAZEPINES SCREEN NEGATIVE (Neg); URINE CANNABINOID SCREEN NEGATIVE (Neg); URINE COCAINE SCREEN NEGATIVE (Neg); URINE METHADONE SCREEN NEGATIVE (Neg); URINE OPIATE SCREEN NEGATIVE (Neg); URINE PHENCYCLIDINE SCREEN NEGATIVE (Neg)
[2019-03-25 18:39] LABS: CLARITY,URINE CLEAR (Clear); GLUCOSE, URINE 500 mg/dl (Neg); KETONES,URINE TRACE mg/dl (Neg); LEUKOCYTE ESTERASE ,URINE NEGATIVE (Neg); NITRITES, URINE NEGATIVE (Neg); OCCULT BLOOD,URINE NEGATIVE (Neg); PH,URINE 5.5 (4.8-8.0); PROTEIN,URINE 100 mg/dl (Neg); UROBILINOGEN,URINE 0.2 E.U/dL (0.2-1.0)
[2019-03-25 18:41] LABS: COLOR,URINE DARK YELLOW (Yellow); UA COLLECTION TYPE CLN CATCH MIDSTREAM
[2019-03-25 18:46] LABS: BACTERIA,URINE NONE SEEN /HPF (Neg); MUCUS STRANDS MANY /LPF (Neg); RBC,URINE NONE SEEN /HPF (0-2); SQUAMOUS EPITHELIAL CELL,UR FEW /LPF (FEW); WBC,URINE 0-4 /HPF (0-4)
[2019-03-25] MEDS ORDERED: clopidogrel 75mg tablet PO ONE (18:55)
[2019-03-25] MEDS ORDERED: DESO15CR13 TP (18:59)
[2019-03-25] MEDS ORDERED: KETO15CR2 TOP (18:59)
[2019-03-25] MEDS ORDERED: CLOP75TA15 PO (19:02)
[2019-03-25] MEDS ORDERED: ASPI-611 PO (19:02)
[2019-03-25 19:14] VITALS: BP 140/80
== END 2019-03-25 19:16 | disposition home or self-care (01) ==
LOC: ER 15:49
DX: G45.9 Transient cerebral ischemic attack, unspecified (principal); L21.8 Other seborrheic dermatitis; E11.42 Type 2 diabetes mellitus with diabetic polyneuropathy; E78.00 Pure hypercholesterolemia, unspecified; I10 Essential (primary) hypertension; G89.29 Other chronic pain; Z86.14 Personal history of Methicillin resistant Staphylococcus aureus infection; Z98.890 Other specified postprocedural states; Z89.421 Acquired absence of other right toe(s); Z88.3 Allergy status to other anti-infective agents; Z88.1 Allergy status to other antibiotic agents; Z91.018 Allergy to other foods; Z79.82 Long term (current) use of aspirin
CPT/HCPCS: 36415; 70450; 71045; 80053; 80305; 80320; 81001; 82948; 84484; 85025; 85610; 85730; 93005; 99284

== ENCOUNTER 2019-04-05 20:12 | Emergency (ER) | payer MEDICARE ==
[~2019-04-05] VITALS: Ht 180.3 cm; Wt 101.8 kg
[~2019-04-05 20:12] MED LIST changes: +ASPI-611 PO; +CLOP75TA15 PO; +DESO15CR13 TP; +KETO15CR2 TOP
[2019-04-05 21:34] LABS: BASOPHILS # (AUTO) 0.1 X10'3 (0-0.2); BASOPHILS % (AUTO) 0.6 % (0-1); EOSINOPHILS # (AUTO) 0.1 X10'3 (0-0.9); EOSINOPHILS % (AUTO) 0.8 % (0-6); HEMATOCRIT 37.8 % (42.0-52.0); HEMOGLOBIN 12.7 g/dl (14.0-17.9); LYMPHOCYTES # (AUTO) 1.7 X10'3 (1.1-4.8); LYMPHOCYTES % (AUTO) 10.4 % (21-51); MEAN CORPUSCULAR HEMOGLOBIN 30.7 PG (27.0-31.0); MEAN CORPUSCULAR HGB CONC 33.6 g/dL (33.0-36.5); MEAN CORPUSCULAR VOLUME 91.4 FL (78-98); MEAN PLATELET VOLUME 7.9 FL (7.4-10.4); MONOCYTES # (AUTO) 1.9 X10'3 (0-0.9); MONOCYTES % (AUTO) 11.8 % (2-12); NEUTROPHILS # (AUTO) 12.5 X10'3 (1.8-7.7); NEUTROPHILS % (AUTO) 76.4 % (42-75); PLATELET COUNT 205 X10'3 (140-440); RED BLOOD COUNT 4.14 X10'6 (4.70-6.10); RED CELL DISTRIBUTION WIDTH 13.7 % (11.5-14.5); WHITE BLOOD COUNT 16.4 X10'3 (4.5-11.0)
[2019-04-05 21:46] LABS: ALANINE AMINOTRANSFERASE 16 U/L (12-78); ALBUMIN 3.3 G/DL (3.4-5.0); ALBUMIN/GLOBULIN RATIO 0.9 (1.1-1.5); ALKALINE PHOSPHATASE 70 IU/L (46-116); ANION GAP 7 (8-16); ASPARTATE AMINO TRANSFERASE 12 U/L (10-37); BILIRUBIN,TOTAL 0.4 MG/DL (0.1-1.0); BLOOD UREA NITROGEN 21 MG/DL (7-18); BUN/CREATININE RATIO 12.9 (5.4-32.0); CALCIUM 8.9 MG/DL (8.5-10.1); CHLORIDE 102 MMOL/L (99-107); CREATININE 1.63 MG/DL (0.60-1.10); GLUCOSE 81 MG/DL (70-104); POTASSIUM 4.2 MMOL/L (3.5-5.1); SODIUM 139 MMOL/L (135-145); eGFR 43 ML/MIN
[2019-04-05] MEDS ORDERED: acetaminophen 325mg tablet PO ONE (21:55)
[2019-04-05] MEDS ORDERED: AZIT250T83 PO (23:18)
[2019-04-05 23:26] VITALS: BP 108/64
== END 2019-04-05 23:34 | disposition home or self-care (01) ==
LOC: ER 20:12
DX: R05 Cough (principal); R50.9 Fever, unspecified; R09.81 Nasal congestion; R51 Headache; E78.00 Pure hypercholesterolemia, unspecified; E11.42 Type 2 diabetes mellitus with diabetic polyneuropathy; I10 Essential (primary) hypertension; E11.9 Type 2 diabetes mellitus without complications; G89.29 Other chronic pain; F41.9 Anxiety disorder, unspecified; F31.9 Bipolar disorder, unspecified; Z87.442 Personal history of urinary calculi; Z98.890 Other specified postprocedural states; Z86.73 Personal history of transient ischemic attack (TIA), and cerebral infarction without residual deficits; Z86.14 Personal history of Methicillin resistant Staphylococcus aureus infection; Z91.018 Allergy to other foods; Z88.1 Allergy status to other antibiotic agents; Z79.2 Long term (current) use of antibiotics; Z79.899 Other long term (current) drug therapy; Z79.82 Long term (current) use of aspirin
CPT/HCPCS: 36415; 71046; 80053; 85025; 87502; 87503; 99284

== ENCOUNTER 2019-09-09 13:24 | Day surgery (SDC) | payer MEDICARE ==
[~2019-09-09 13:24] MED LIST changes: -ASPI-611 PO; +MECL-183 PO; -MECL12.584 PO; -ROPI1TAB4 PO; +ROPI1TAB6 PO
[2019-09-09] MEDS ORDERED: LIDOcaine 2% 5ml jelly ONE (13:40)
== END 2019-09-09 14:51 | disposition home or self-care (01) ==
LOC: WOUND CARE 13:24
PROVIDERS: ATTEND Nurse Practitioner
DX: E11.621 Type 2 diabetes mellitus with foot ulcer (principal); L97.522 Non-pressure chronic ulcer of other part of left foot with fat layer exposed; E11.42 Type 2 diabetes mellitus with diabetic polyneuropathy; E11.65 Type 2 diabetes mellitus with hyperglycemia; E11.21 Type 2 diabetes mellitus with diabetic nephropathy; E11.22 Type 2 diabetes mellitus with diabetic chronic kidney disease; I12.9 Hypertensive chronic kidney disease with stage 1 through stage 4 chronic kidney disease, or unspecified chronic kidney disease; N18.9 Chronic kidney disease, unspecified; E78.5 Hyperlipidemia, unspecified; G89.29 Other chronic pain; G40.89 Other seizures; E78.00 Pure hypercholesterolemia, unspecified; M19.90 Unspecified osteoarthritis, unspecified site; F31.9 Bipolar disorder, unspecified; Z79.82 Long term (current) use of aspirin; Z79.84 Long term (current) use of oral hypoglycemic drugs; Z79.899 Other long term (current) drug therapy; Z89.421 Acquired absence of other right toe(s); Z86.14 Personal history of Methicillin resistant Staphylococcus aureus infection; Z86.73 Personal history of transient ischemic attack (TIA), and cerebral infarction without residual deficits
CPT/HCPCS: 36416; 82948; 97597

== ENCOUNTER 2020-01-18 12:56 | Day surgery (SDC) | payer MEDICARE ==
[2020-01-18] MEDS ORDERED: LIDOcaine 2% 5ml jelly ONE (13:29)
== END 2020-01-18 13:57 | disposition home or self-care (01) ==
LOC: WOUND CARE 12:56
PROVIDERS: ATTEND Nurse Practitioner
DX: S70.262A Insect bite (nonvenomous), left hip, initial encounter (principal); E11.621 Type 2 diabetes mellitus with foot ulcer; L97.522 Non-pressure chronic ulcer of other part of left foot with fat layer exposed; E11.42 Type 2 diabetes mellitus with diabetic polyneuropathy; E11.65 Type 2 diabetes mellitus with hyperglycemia; E11.21 Type 2 diabetes mellitus with diabetic nephropathy; E11.22 Type 2 diabetes mellitus with diabetic chronic kidney disease; I12.9 Hypertensive chronic kidney disease with stage 1 through stage 4 chronic kidney disease, or unspecified chronic kidney disease; N18.9 Chronic kidney disease, unspecified; E78.5 Hyperlipidemia, unspecified; G89.29 Other chronic pain; G40.89 Other seizures; E78.00 Pure hypercholesterolemia, unspecified; M19.90 Unspecified osteoarthritis, unspecified site; F31.9 Bipolar disorder, unspecified; Z79.82 Long term (current) use of aspirin; Z79.84 Long term (current) use of oral hypoglycemic drugs; Z79.899 Other long term (current) drug therapy; Z89.421 Acquired absence of other right toe(s); Z86.14 Personal history of Methicillin resistant Staphylococcus aureus infection; Z86.73 Personal history of transient ischemic attack (TIA), and cerebral infarction without residual deficits; W57.XXXA Bitten or stung by nonvenomous insect and other nonvenomous arthropods, initial encounter; Y93.89 Activity, other specified; Y92.89 Other specified places as the place of occurrence of the external cause; Y99.8 Other external cause status
CPT/HCPCS: 36416; 82948; 97597

== ENCOUNTER 2020-01-26 12:55 | Day surgery (SDC) | payer MEDICARE ==
[~2020-01-26 12:55] MED LIST changes: +LIDOcaine 2% 5ml jelly ONE
== END 2020-01-26 13:16 | disposition home or self-care (01) ==
LOC: WOUND CARE 12:55
PROVIDERS: ATTEND Nurse Practitioner
DX: S70.262D Insect bite (nonvenomous), left hip, subsequent encounter (principal); E11.621 Type 2 diabetes mellitus with foot ulcer; L97.522 Non-pressure chronic ulcer of other part of left foot with fat layer exposed; E11.42 Type 2 diabetes mellitus with diabetic polyneuropathy; E11.65 Type 2 diabetes mellitus with hyperglycemia; E11.21 Type 2 diabetes mellitus with diabetic nephropathy; E11.22 Type 2 diabetes mellitus with diabetic chronic kidney disease; I12.9 Hypertensive chronic kidney disease with stage 1 through stage 4 chronic kidney disease, or unspecified chronic kidney disease; N18.9 Chronic kidney disease, unspecified; E78.5 Hyperlipidemia, unspecified; G89.29 Other chronic pain; G40.89 Other seizures; E78.00 Pure hypercholesterolemia, unspecified; M19.90 Unspecified osteoarthritis, unspecified site; F31.9 Bipolar disorder, unspecified; Z79.82 Long term (current) use of aspirin; Z79.84 Long term (current) use of oral hypoglycemic drugs; Z79.899 Other long term (current) drug therapy; Z89.421 Acquired absence of other right toe(s); Z86.14 Personal history of Methicillin resistant Staphylococcus aureus infection; Z86.73 Personal history of transient ischemic attack (TIA), and cerebral infarction without residual deficits; W57.XXXD Bitten or stung by nonvenomous insect and other nonvenomous arthropods, subsequent encounter
CPT/HCPCS: 36416; 97597

== ENCOUNTER 2020-02-01 11:21 | Day surgery (SDC) | payer MEDICARE ==
[~2020-02-01 11:21] MED LIST changes: -LIDOcaine 2% 5ml jelly ONE
[2020-02-01] MEDS ORDERED: LIDOcaine 2% 5ml jelly ONE (12:04)
== END 2020-02-01 13:06 | disposition home or self-care (01) ==
LOC: WOUND CARE 11:21
PROVIDERS: ATTEND Nurse Practitioner
DX: S71.022A Laceration with foreign body, left hip, initial encounter (principal); S70.262D Insect bite (nonvenomous), left hip, subsequent encounter; E11.621 Type 2 diabetes mellitus with foot ulcer; L97.522 Non-pressure chronic ulcer of other part of left foot with fat layer exposed; E11.42 Type 2 diabetes mellitus with diabetic polyneuropathy; E11.65 Type 2 diabetes mellitus with hyperglycemia; E11.21 Type 2 diabetes mellitus with diabetic nephropathy; E11.22 Type 2 diabetes mellitus with diabetic chronic kidney disease; I12.9 Hypertensive chronic kidney disease with stage 1 through stage 4 chronic kidney disease, or unspecified chronic kidney disease; N18.9 Chronic kidney disease, unspecified; E78.5 Hyperlipidemia, unspecified; G89.29 Other chronic pain; G40.89 Other seizures; E78.00 Pure hypercholesterolemia, unspecified; M19.90 Unspecified osteoarthritis, unspecified site; F31.9 Bipolar disorder, unspecified; Z79.82 Long term (current) use of aspirin; Z79.84 Long term (current) use of oral hypoglycemic drugs; Z79.899 Other long term (current) drug therapy; Z89.421 Acquired absence of other right toe(s); Z86.14 Personal history of Methicillin resistant Staphylococcus aureus infection; Z86.73 Personal history of transient ischemic attack (TIA), and cerebral infarction without residual deficits; W57.XXXD Bitten or stung by nonvenomous insect and other nonvenomous arthropods, subsequent encounter; X58.XXXA Exposure to other specified factors, initial encounter; Y93.89 Activity, other specified; Y92.89 Other specified places as the place of occurrence of the external cause; Y99.8 Other external cause status
CPT/HCPCS: 36416; 82948; 97597

== ENCOUNTER 2020-02-07 14:30 | Emergency (ER) | payer MEDICARE ==
[~2020-02-07] VITALS: Ht 180.3 cm; Wt 104.2 kg
[2020-02-07 15:04] VITALS: BP 146/75
[2020-02-07] MEDS ORDERED: BACDS PO (15:22)
== END 2020-02-07 15:47 | disposition home or self-care (01) ==
LOC: ER 14:32
DX: L03.116 Cellulitis of left lower limb (principal); E11.42 Type 2 diabetes mellitus with diabetic polyneuropathy; E78.00 Pure hypercholesterolemia, unspecified; I10 Essential (primary) hypertension; G89.29 Other chronic pain; F41.9 Anxiety disorder, unspecified; F31.9 Bipolar disorder, unspecified; Z86.73 Personal history of transient ischemic attack (TIA), and cerebral infarction without residual deficits; Z87.442 Personal history of urinary calculi; Z86.14 Personal history of Methicillin resistant Staphylococcus aureus infection; Z98.890 Other specified postprocedural states; Z88.1 Allergy status to other antibiotic agents; Z91.018 Allergy to other foods; Z79.2 Long term (current) use of antibiotics; Z79.82 Long term (current) use of aspirin; Z79.899 Other long term (current) drug therapy
CPT/HCPCS: 99283

== ENCOUNTER 2020-02-09 10:00 | Day surgery (SDC) | payer MEDICARE ==
[~2020-02-09 10:00] MED LIST changes: +BACDS PO
[2020-02-09] MEDS ORDERED: LIDOcaine 1% w/epiNEPHrine 1:200,000 30ml vial ONE (10:08)
== END 2020-02-13 11:15 | disposition home or self-care (01) ==
LOC: WOUND CARE 10:00
PROVIDERS: ATTEND Nurse Practitioner
DX: T81.89XA Other complications of procedures, not elsewhere classified, initial encounter (principal); S71.02 Laceration with foreign body of hip; S70.262D Insect bite (nonvenomous), left hip, subsequent encounter; E11.622 Type 2 diabetes mellitus with other skin ulcer; L98.492 Non-pressure chronic ulcer of skin of other sites with fat layer exposed; E11.65 Type 2 diabetes mellitus with hyperglycemia; E11.42 Type 2 diabetes mellitus with diabetic polyneuropathy; E11.21 Type 2 diabetes mellitus with diabetic nephropathy; E11.22 Type 2 diabetes mellitus with diabetic chronic kidney disease; I12.9 Hypertensive chronic kidney disease with stage 1 through stage 4 chronic kidney disease, or unspecified chronic kidney disease; N18.9 Chronic kidney disease, unspecified; E78.5 Hyperlipidemia, unspecified; G89.29 Other chronic pain; G40.89 Other seizures; E78.00 Pure hypercholesterolemia, unspecified; M19.90 Unspecified osteoarthritis, unspecified site; F31.9 Bipolar disorder, unspecified; Z79.82 Long term (current) use of aspirin; Z79.84 Long term (current) use of oral hypoglycemic drugs; Z79.899 Other long term (current) drug therapy; Z89.421 Acquired absence of other right toe(s); Z86.14 Personal history of Methicillin resistant Staphylococcus aureus infection; Z86.73 Personal history of transient ischemic attack (TIA), and cerebral infarction without residual deficits; W57.XXXD Bitten or stung by nonvenomous insect and other nonvenomous arthropods, subsequent encounter; X58.XXXD Exposure to other specified factors, subsequent encounter; Y83.8 Other surgical procedures as the cause of abnormal reaction of the patient, or of later complication, without mention of misadventure at the time of the procedure; Y92.238 Other place in hospital as the place of occurrence of the external cause
CPT/HCPCS: 10140; 36416; 82948; 97597

== ENCOUNTER 2020-02-13 10:40 | Day surgery (SDC) | payer MEDICARE ==
[2020-02-13] MEDS ORDERED: LIDOcaine 2% 5ml jelly ONE (11:43)
== END 2020-02-13 12:17 | disposition home or self-care (01) ==
LOC: WOUND CARE 10:40
PROVIDERS: ATTEND Nurse Practitioner
DX: T81.89XA Other complications of procedures, not elsewhere classified, initial encounter (principal); S71.02 Laceration with foreign body of hip; S70.262D Insect bite (nonvenomous), left hip, subsequent encounter; E11.622 Type 2 diabetes mellitus with other skin ulcer; L98.492 Non-pressure chronic ulcer of skin of other sites with fat layer exposed; E11.42 Type 2 diabetes mellitus with diabetic polyneuropathy; E11.65 Type 2 diabetes mellitus with hyperglycemia; E11.21 Type 2 diabetes mellitus with diabetic nephropathy; E11.22 Type 2 diabetes mellitus with diabetic chronic kidney disease; I12.9 Hypertensive chronic kidney disease with stage 1 through stage 4 chronic kidney disease, or unspecified chronic kidney disease; N18.9 Chronic kidney disease, unspecified; E78.5 Hyperlipidemia, unspecified; G89.29 Other chronic pain; G40.89 Other seizures; E78.00 Pure hypercholesterolemia, unspecified; M19.90 Unspecified osteoarthritis, unspecified site; F31.9 Bipolar disorder, unspecified; Z79.82 Long term (current) use of aspirin; Z79.84 Long term (current) use of oral hypoglycemic drugs; Z79.899 Other long term (current) drug therapy; Z89.421 Acquired absence of other right toe(s); Z86.14 Personal history of Methicillin resistant Staphylococcus aureus infection; Z86.73 Personal history of transient ischemic attack (TIA), and cerebral infarction without residual deficits; W57.XXXD Bitten or stung by nonvenomous insect and other nonvenomous arthropods, subsequent encounter; X58.XXXD Exposure to other specified factors, subsequent encounter; Y83.8 Other surgical procedures as the cause of abnormal reaction of the patient, or of later complication, without mention of misadventure at the time of the procedure; Y92.238 Other place in hospital as the place of occurrence of the external cause
CPT/HCPCS: 36416; 82948; 97597

== ENCOUNTER 2020-02-16 12:51 | Outpatient (CLI) | payer MEDICARE ==
[2020-02-16] MEDS ORDERED: LIDOcaine 2% 5ml jelly ONE (13:18)
== END 2020-02-16 13:45 | disposition home or self-care (01) ==
LOC: WOUND CARE 12:51 → EDSTATUS 13:00 → WOUND CARE 13:45
PROVIDERS: ATTEND Nurse Practitioner
DX: S70.262D Insect bite (nonvenomous), left hip, subsequent encounter (principal); E11.622 Type 2 diabetes mellitus with other skin ulcer; L98.492 Non-pressure chronic ulcer of skin of other sites with fat layer exposed; E11.42 Type 2 diabetes mellitus with diabetic polyneuropathy; E11.65 Type 2 diabetes mellitus with hyperglycemia; E11.21 Type 2 diabetes mellitus with diabetic nephropathy; E11.22 Type 2 diabetes mellitus with diabetic chronic kidney disease; I12.9 Hypertensive chronic kidney disease with stage 1 through stage 4 chronic kidney disease, or unspecified chronic kidney disease; N18.9 Chronic kidney disease, unspecified; E78.5 Hyperlipidemia, unspecified; G89.29 Other chronic pain; G40.89 Other seizures; E78.00 Pure hypercholesterolemia, unspecified; M19.90 Unspecified osteoarthritis, unspecified site; F31.9 Bipolar disorder, unspecified; Z79.82 Long term (current) use of aspirin; Z79.84 Long term (current) use of oral hypoglycemic drugs; Z79.899 Other long term (current) drug therapy; Z89.421 Acquired absence of other right toe(s); Z86.14 Personal history of Methicillin resistant Staphylococcus aureus infection; Z86.73 Personal history of transient ischemic attack (TIA), and cerebral infarction without residual deficits; W57.XXXD Bitten or stung by nonvenomous insect and other nonvenomous arthropods, subsequent encounter
CPT/HCPCS: 36416; 97597; 97598

== ENCOUNTER 2020-02-23 14:06 | Outpatient (CLI) | payer MEDICARE ==
[2020-02-23] MEDS ORDERED: LIDOcaine 2% 5ml jelly ONE (14:57)
== END 2020-02-23 23:59 | disposition home or self-care (01) ==
LOC: WOUND CARE 14:06
PROVIDERS: ATTEND Nurse Practitioner
DX: S70.262D Insect bite (nonvenomous), left hip, subsequent encounter (principal); E11.622 Type 2 diabetes mellitus with other skin ulcer; L98.492 Non-pressure chronic ulcer of skin of other sites with fat layer exposed; E11.42 Type 2 diabetes mellitus with diabetic polyneuropathy; E11.65 Type 2 diabetes mellitus with hyperglycemia; E11.21 Type 2 diabetes mellitus with diabetic nephropathy; E11.22 Type 2 diabetes mellitus with diabetic chronic kidney disease; I12.9 Hypertensive chronic kidney disease with stage 1 through stage 4 chronic kidney disease, or unspecified chronic kidney disease; N18.9 Chronic kidney disease, unspecified; E78.5 Hyperlipidemia, unspecified; G89.29 Other chronic pain; G40.89 Other seizures; E78.00 Pure hypercholesterolemia, unspecified; M19.90 Unspecified osteoarthritis, unspecified site; F31.9 Bipolar disorder, unspecified; Z79.82 Long term (current) use of aspirin; Z79.84 Long term (current) use of oral hypoglycemic drugs; Z79.899 Other long term (current) drug therapy; Z89.421 Acquired absence of other right toe(s); Z98.890 Other specified postprocedural states; Z87.442 Personal history of urinary calculi; Z86.14 Personal history of Methicillin resistant Staphylococcus aureus infection; Z86.73 Personal history of transient ischemic attack (TIA), and cerebral infarction without residual deficits; W57.XXXD Bitten or stung by nonvenomous insect and other nonvenomous arthropods, subsequent encounter
CPT/HCPCS: 82948; 97597

== ENCOUNTER 2020-03-01 13:50 | Outpatient (CLI) | payer MEDICARE ==
[2020-03-01] MEDS ORDERED: LIDOcaine 2% 5ml jelly ONE (14:39)
== END 2020-03-01 23:59 | disposition home or self-care (01) ==
LOC: WOUND CARE 13:50 → EDSTATUS 14:00 → WOUND CARE 23:59
PROVIDERS: ATTEND Nurse Practitioner
DX: S70.262D Insect bite (nonvenomous), left hip, subsequent encounter (principal); E11.622 Type 2 diabetes mellitus with other skin ulcer; L98.492 Non-pressure chronic ulcer of skin of other sites with fat layer exposed; E11.42 Type 2 diabetes mellitus with diabetic polyneuropathy; E11.65 Type 2 diabetes mellitus with hyperglycemia; E11.21 Type 2 diabetes mellitus with diabetic nephropathy; I12.9 Hypertensive chronic kidney disease with stage 1 through stage 4 chronic kidney disease, or unspecified chronic kidney disease; N18.9 Chronic kidney disease, unspecified; E78.5 Hyperlipidemia, unspecified; G89.29 Other chronic pain; G40.89 Other seizures; E78.00 Pure hypercholesterolemia, unspecified; M19.90 Unspecified osteoarthritis, unspecified site; F31.9 Bipolar disorder, unspecified; Z79.82 Long term (current) use of aspirin; Z79.84 Long term (current) use of oral hypoglycemic drugs; Z79.899 Other long term (current) drug therapy; Z89.421 Acquired absence of other right toe(s); Z86.14 Personal history of Methicillin resistant Staphylococcus aureus infection; Z86.73 Personal history of transient ischemic attack (TIA), and cerebral infarction without residual deficits; W57.XXXD Bitten or stung by nonvenomous insect and other nonvenomous arthropods, subsequent encounter
CPT/HCPCS: G0463

== ENCOUNTER 2020-11-18 16:52 | Emergency (ER) | payer MEDICARE, OTHER ==
[~2020-11-18] VITALS: Ht 177.8 cm; Wt 102.7 kg
[~2020-11-18 16:52] MED LIST changes: -BACDS PO; -MECL-183 PO; +MECL-226 PO
[2020-11-18 17:01] VITALS: BP 108/61
--- NOTE | 2020-11-18 17:45 | NUR ---
pt is 65 yo male c/o increased pain to rt foot, has had ulcer on foot for 2 weeks, following up with wound clinic, next appt on Thursday. no fever/chills, no n/v. waiting to be evaluated by provider
[2020-11-18] MEDS ORDERED: acetaminophen 325mg tablet PO ONE (18:00)
[2020-11-18] MEDS ORDERED: CLIN150C8 PO ×2 (18:19→18:28)
[2020-11-18] MEDS ORDERED: clindamycin 150mg capsule PO ONE (19:15)
[2020-11-18] MEDS ORDERED: CLIN300C54 PO (19:17)
--- NOTE | 2020-11-18 19:36 | NUR ---
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
== END 2020-11-18 19:41 | disposition home or self-care (01) ==
LOC: ER 16:52
DX: E11.621 Type 2 diabetes mellitus with foot ulcer (principal); L97.511 Non-pressure chronic ulcer of other part of right foot limited to breakdown of skin; E78.00 Pure hypercholesterolemia, unspecified; I10 Essential (primary) hypertension; E11.43 Type 2 diabetes mellitus with diabetic autonomic (poly)neuropathy; G89.29 Other chronic pain; Z88.1 Allergy status to other antibiotic agents; Z91.018 Allergy to other foods; Z79.82 Long term (current) use of aspirin; Z79.2 Long term (current) use of antibiotics; Z79.899 Other long term (current) drug therapy; Z86.14 Personal history of Methicillin resistant Staphylococcus aureus infection; Z86.73 Personal history of transient ischemic attack (TIA), and cerebral infarction without residual deficits; Z87.440 Personal history of urinary (tract) infections
CPT/HCPCS: 73630; 99283

== ENCOUNTER 2021-08-19 06:11 | Emergency (ER) | payer MEDICARE, OTHER ==
[~2021-08-19] VITALS: Ht 180.3 cm; Wt 101.0 kg
[2021-08-19 06:15] VITALS: BP 136/66
--- NOTE | 2021-08-19 06:43 | NUR ---
PT C/0 NUMBNESS AND WEAKNESS PAST MONTH. INCREASINGLY GETTING WORSE. OCC LEGS ALICE WEAK, DIFF GETTING UP OFF COUCH
[2021-08-19 07:38] LABS: BASOPHILS # (AUTO) 0.1 X10'3 (0-0.2); BASOPHILS % (AUTO) 0.9 % (0-1); EOSINOPHILS # (AUTO) 0.3 X10'3 (0-0.9); EOSINOPHILS % (AUTO) 3.9 % (0-6); HEMATOCRIT 34.7 % (42.0-52.0); HEMOGLOBIN 11.8 g/dl (14.0-17.9); LYMPHOCYTES # (AUTO) 2.5 X10'3 (1.1-4.8); LYMPHOCYTES % (AUTO) 35.6 % (21-51); MEAN CORPUSCULAR HEMOGLOBIN 30.2 PG (27.0-31.0); MEAN CORPUSCULAR VOLUME 88.9 FL (78-98); MEAN PLATELET VOLUME 8.6 FL (7.4-10.4); MONOCYTES # (AUTO) 0.7 X10'3 (0-0.9); MONOCYTES % (AUTO) 9.9 % (2-12); NEUTROPHILS # (AUTO) 3.5 X10'3 (1.8-7.7); NEUTROPHILS % (AUTO) 49.7 % (42-75); PLATELET COUNT 221 X10'3 (140-440); RED CELL DISTRIBUTION WIDTH 13.9 % (11.5-14.5); WHITE BLOOD COUNT 7.1 X10'3 (4.5-11.0)
[2021-08-19] MEDS ORDERED: ketorolac trometh. 30mg/ml inj. IM ONE (07:50)
[2021-08-19 07:54] LABS: ALANINE AMINOTRANSFERASE 19 U/L (12-78); ALBUMIN 3.3 G/DL (3.4-5.0); ALBUMIN/GLOBULIN RATIO 1.1 (1.1-1.5); ALKALINE PHOSPHATASE 117 IU/L (46-116); ANION GAP 10 (8-16); ASPARTATE AMINO TRANSFERASE 15 U/L (10-37); BILIRUBIN,TOTAL 0.3 MG/DL (0.1-1.0); BLOOD UREA NITROGEN 29 MG/DL (7-18); BUN/CREATININE RATIO 20.3 (5.4-32.0); CALCIUM 8.1 MG/DL (8.5-10.1); CHLORIDE 105 MMOL/L (99-107); CREATININE 1.43 MG/DL (0.60-1.10); GLUCOSE 408 MG/DL (70-104); POTASSIUM 4.2 MMOL/L (3.5-5.1); SODIUM 140 MMOL/L (135-145); TOTAL CARBON DIOXIDE 25.1 MMOL/L (24-32); TOTAL PROTEIN 6.4 G/DL (6.4-8.2); eGFR 49 ML/MIN
[2021-08-19 08:01] LABS: HEMOGLOBIN A1C 9.8 % (4.5-6.2)
[2021-08-19] MEDS ORDERED: CELE-85 PO (08:17)
== END 2021-08-19 08:30 | disposition home or self-care (01) ==
LOC: ER 06:11
DX: G56.83 Other specified mononeuropathies of bilateral upper limbs (principal); I11.9 Hypertensive heart disease without heart failure; E11.9 Type 2 diabetes mellitus without complications; G89.29 Other chronic pain; M54.9 Dorsalgia, unspecified; F31.9 Bipolar disorder, unspecified; Z88.1 Allergy status to other antibiotic agents; Z79.899 Other long term (current) drug therapy; Z88.8 Allergy status to other drugs, medicaments and biological substances
CPT/HCPCS: 36415; 80053; 83036; 85025; 96372; 99283; J1885

== ENCOUNTER 2021-09-12 09:59 | Emergency (ER) | payer MEDICARE, OTHER ==
[~2021-09-12] VITALS: Ht 180.3 cm; Wt 101.8 kg
[~2021-09-12 09:59] MED LIST changes: +CELE-85 PO
[2021-09-12 10:03] VITALS: BP 140/76
[2021-09-12] MEDS ORDERED: dexamethasone sod phosphate 10mg/ml inj IM STA (12:07)
[2021-09-12] MEDS ORDERED: ONDA4TAB12 PO (12:12)
[2021-09-12] MEDS ORDERED: OXYC-658 PO (12:12)
== END 2021-09-12 12:35 | disposition home or self-care (01) ==
LOC: ER 10:00
DX: M19.90 Unspecified osteoarthritis, unspecified site (principal); M79.641 Pain in right hand; R20.0 Anesthesia of skin; R53.1 Weakness; E11.42 Type 2 diabetes mellitus with diabetic polyneuropathy; E78.00 Pure hypercholesterolemia, unspecified; I10 Essential (primary) hypertension; G89.29 Other chronic pain; F41.9 Anxiety disorder, unspecified; F31.9 Bipolar disorder, unspecified; Z86.73 Personal history of transient ischemic attack (TIA), and cerebral infarction without residual deficits; Z87.442 Personal history of urinary calculi; Z86.14 Personal history of Methicillin resistant Staphylococcus aureus infection; Z98.890 Other specified postprocedural states; Z88.1 Allergy status to other antibiotic agents; Z88.8 Allergy status to other drugs, medicaments and biological substances; Z79.82 Long term (current) use of aspirin; Z79.2 Long term (current) use of antibiotics; Z79.899 Other long term (current) drug therapy
CPT/HCPCS: 73110; 73130; 96372; 99284; J1100